=== PATIENT | female | born 1935 | race Caucasian/White ===

== ENCOUNTER 2018-08-10 00:17 | Day surgery (SDC) | payer OTHER ==
[~2018-08-10 00:17] MED LIST: DIOVAN PO
--- NOTE | 2018-08-10 15:24 | NUR ---
PRE AND POST VOID RESIDUAL SCAN: PT ARRIVED IN [place] WANTING WITH URGENCY TO URINATE. PT STATES SHE HAS DRANK APPROX. 50ML OF FLUID. SCANNED BLADDER WITH FBP BLADDER SCANNER 6 TIMES, AVERAGED SCANS TO 150ML. PT WENT INTO BATHROOM, URINATED 300CC OF CLEAR YELLOW URINE. POST SCAN OF 6 SCANS SHOWING ZERO. FOR UNKNOWN REASONS, BLADDER SCAN ONLY SHOWED THE 150ML AVERAGE OF 6 SCANS.
== END 2018-08-10 10:05 | disposition home or self-care (01) ==
LOC: ATC 00:17
DX: N39.41 Urge incontinence (principal); N32.81 Overactive bladder; Z88.8 Allergy status to other drugs, medicaments and biological substances
CPT/HCPCS: 51798

== ENCOUNTER 2021-02-18 17:11 | Emergency (ER) | payer OTHER | END 2021-02-19 00:12 | disposition home or self-care (01) | LOC: ER 17:11 | DX: N39.0 Urinary tract infection, site not specified (principal) ==

== ENCOUNTER 2021-02-28 10:22 | Observation (INO) | payer OTHER ==
[~2021-02-28] VITALS: Ht 170.2 cm; Wt 68.3 kg
[~2021-02-28 10:22] MED LIST changes: +CEFP200 PO
[2021-02-28 11:06] LABS: Source, Urine Clean Catch
[2021-02-28 11:12] LABS: BASOPHILS ABSOLUTE AUTO 0.01 K/mm3 (0.00-0.23); BASOPHILS PERCENT AUTO 0 % (0-2); EOSINOPHILS PERCENT AUTO 0 % (0-6); Hematocrit 40.1 % (33.0-51.0); Hemoglobin 13.9 g/dL (11.5-16.0); IMMATURE GRAN ABSOLUTE AUTO 0.02 K/mm3 (0.00-0.10); IMMATURE GRAN PERCENT AUTO 1 % (0-1); LYMPHOCYTES ABSOLUTE AUTO 0.93 K/mm3 (0.84-5.20); LYMPHOCYTES PERCENT AUTO 25 % (21-46); MONOCYTES ABSOLUTE AUTO 0.49 K/mm3 (0.16-1.47); MONOCYTES PERCENT AUTO 13 % (4-13); Mean Corpuscular HGB 31.4 pg (26.0-34.0); Mean Corpuscular HGB Conc 34.7 g/dL (31.5-36.5); Mean Corpuscular Volume 91 fL (80-100); Mean Platelet Volume 9.9 fL (9.1-12.4); NEUTROPHILS ABSOLUTE AUTO 2.25 K/mm3 (1.96-9.15); NEUTROPHILS PERCENT AUTO 61 % (41-73); Platelet Count 176 K/mm3 (150-400); RDW Coefficient Variation 12.4 % (11.7-14.2); RDW Standard Deviation 41.6 fL (35.1-46.3); Red Blood Cell Count 4.43 M/mm3 (3.80-5.20)
[2021-02-28 11:15] LABS: Appearance, Urine Clear (Clear); Bilirubin, Urine Neg (Neg); Blood, Urine 1+ (Neg); Color, Urine Yellow (P-Yellow); Glucose Qualitative, Urine Neg (Neg); Ketones, Urine Neg (Neg); Leukocyte Esterase, Urine Neg (Neg); Nitrite, Urine Neg (Neg); Protein, Urine 2+ (Neg); Urobilinogen, Urine 1+ (Normal)
[2021-02-28 11:26] LABS: Bacteria Few /hpf; Mucus Mod (0-Heavy); Red Blood Cells, Urine 0-2 /hpf (0-2); Squamous Epithelial Cells Mod /hpf (Few); White Blood Cells, Urine 0-2 /hpf (0-5)
[2021-02-28 11:37] LABS: Lactate Dehydrogenase (Ld),Bld 443 U/L (100-240)
[2021-02-28 11:38] LABS: Alanine Aminotransfer (ALT/SGP 37 U/L (12-78); Albumin, Blood 3.1 g/dL (3.4-5.0); Albumin/Globulin Ratio 0.9 (0.8-1.8); Alk Phos 61 U/L (50-136); Anion Gap 5 mmol/L (6-16); Aspartate Aminotrans (AST/SGOT 59 U/L (12-37); Bilirubin, Total 0.7 mg/dL (0.1-1.0); Blood Urea Nitrogen 12 mg/dL (8-24); Bun/Creatinine Ratio 15.8 (12.0-20.0); CO2, Blood 30 mmol/L (21-32); Calcium, Blood 8.2 mg/dL (8.5-10.1); Chloride, Blood 97 mmol/L (98-108); Creatinine, Blood 0.76 mg/dL (0.40-1.00); Globulin, Blood 3.5 g/dL (2.2-4.0); Glomerular Filtration Rate >60 (60-); Glucose, Blood 102 mg/dL (70-99); Sodium, Blood 132 mmol/L (136-145); Total Protein, Blood 6.6 g/dL (6.4-8.2)
[2021-02-28] MEDS ORDERED: DONEPEZIL HCL10 MG PO (15:13)
[2021-02-28] MEDS ORDERED: Diovan40 MG PO (15:14)
[2021-02-28] MEDS ORDERED: VITAMIN D31000 UNI1 PO (15:16)
[2021-03-01 04:52] LABS: BASOPHILS ABSOLUTE AUTO 0.01 K/mm3 (0.00-0.23); BASOPHILS PERCENT AUTO 0 % (0-2); EOSINOPHILS PERCENT AUTO 0 % (0-6); Hematocrit 38.7 % (33.0-51.0); Hemoglobin 13.3 g/dL (11.5-16.0); IMMATURE GRAN ABSOLUTE AUTO 0.03 K/mm3 (0.00-0.10); IMMATURE GRAN PERCENT AUTO 1 % (0-1); LYMPHOCYTES ABSOLUTE AUTO 0.91 K/mm3 (0.84-5.20); LYMPHOCYTES PERCENT AUTO 21 % (21-46); MONOCYTES ABSOLUTE AUTO 0.59 K/mm3 (0.16-1.47); MONOCYTES PERCENT AUTO 14 % (4-13); Mean Corpuscular HGB 31.1 pg (26.0-34.0); Mean Corpuscular HGB Conc 34.4 g/dL (31.5-36.5); Mean Corpuscular Volume 91 fL (80-100); Mean Platelet Volume 10.1 fL (9.1-12.4); NEUTROPHILS ABSOLUTE AUTO 2.79 K/mm3 (1.96-9.15); NEUTROPHILS PERCENT AUTO 65 % (41-73); Platelet Count 182 K/mm3 (150-400); RDW Coefficient Variation 12.4 % (11.7-14.2); RDW Standard Deviation 41.4 fL (35.1-46.3); Red Blood Cell Count 4.27 M/mm3 (3.80-5.20); White Blood Cell Count 4.33 K/mm3 (4.00-11.30)
[2021-03-01 05:11] LABS: Anion Gap 5 mmol/L (6-16); Blood Urea Nitrogen 16 mg/dL (8-24); CO2, Blood 29 mmol/L (21-32); Calcium, Blood 8.3 mg/dL (8.5-10.1); Chloride, Blood 98 mmol/L (98-108); Creatinine, Blood 0.76 mg/dL (0.40-1.00); Glomerular Filtration Rate >60 (60-); Glucose, Blood 92 mg/dL (70-99); Potassium, Blood 4.4 mmol/L (3.5-5.5); Sodium, Blood 132 mmol/L (136-145)
[2021-03-02] MEDS ORDERED: LEVFLO500 PO (06:35)
[2021-03-03 04:46] LABS: BASOPHILS ABSOLUTE AUTO 0.01 K/mm3 (0.00-0.23); BASOPHILS PERCENT AUTO 0 % (0-2); EOSINOPHILS PERCENT AUTO 0 % (0-6); Hematocrit 40.2 % (33.0-51.0); Hemoglobin 13.9 g/dL (11.5-16.0); IMMATURE GRAN ABSOLUTE AUTO 0.04 K/mm3 (0.00-0.10); IMMATURE GRAN PERCENT AUTO 1 % (0-1); LYMPHOCYTES ABSOLUTE AUTO 0.81 K/mm3 (0.84-5.20); LYMPHOCYTES PERCENT AUTO 14 % (21-46); MONOCYTES ABSOLUTE AUTO 0.46 K/mm3 (0.16-1.47); MONOCYTES PERCENT AUTO 8 % (4-13); Mean Corpuscular HGB 31.4 pg (26.0-34.0); Mean Corpuscular HGB Conc 34.6 g/dL (31.5-36.5); Mean Corpuscular Volume 91 fL (80-100); Mean Platelet Volume 9.9 fL (9.1-12.4); NEUTROPHILS ABSOLUTE AUTO 4.47 K/mm3 (1.96-9.15); NEUTROPHILS PERCENT AUTO 77 % (41-73); Platelet Count 219 K/mm3 (150-400); RDW Coefficient Variation 12.3 % (11.7-14.2); RDW Standard Deviation 41.2 fL (35.1-46.3); Red Blood Cell Count 4.43 M/mm3 (3.80-5.20); White Blood Cell Count 5.79 K/mm3 (4.00-11.30)
[2021-03-03 05:11] LABS: Alanine Aminotransfer (ALT/SGP 33 U/L (12-78); Albumin, Blood 3.1 g/dL (3.4-5.0); Albumin/Globulin Ratio 0.9 (0.8-1.8); Alk Phos 62 U/L (50-136); Anion Gap 5 mmol/L (6-16); Aspartate Aminotrans (AST/SGOT 40 U/L (12-37); Blood Urea Nitrogen 27 mg/dL (8-24); Bun/Creatinine Ratio 33.6 (12.0-20.0); CO2, Blood 30 mmol/L (21-32); Calcium, Blood 8.3 mg/dL (8.5-10.1); Chloride, Blood 99 mmol/L (98-108); Globulin, Blood 3.3 g/dL (2.2-4.0); Glomerular Filtration Rate >60 (60-); Glucose, Blood 87 mg/dL (70-99); Potassium, Blood 3.5 mmol/L (3.5-5.5); Sodium, Blood 134 mmol/L (136-145); Total Protein, Blood 6.4 g/dL (6.4-8.2)
[2021-03-05 10:07] LABS: Alanine Aminotransfer (ALT/SGP 31 U/L (12-78); Albumin, Blood 2.6 g/dL (3.4-5.0); Albumin/Globulin Ratio 0.7 (0.8-1.8); Alk Phos 62 U/L (50-136); Anion Gap 5 mmol/L (6-16); Aspartate Aminotrans (AST/SGOT 30 U/L (12-37); Bilirubin, Total 0.9 mg/dL (0.1-1.0); Blood Urea Nitrogen 25 mg/dL (8-24); Bun/Creatinine Ratio 39.1 (12.0-20.0); CO2, Blood 28 mmol/L (21-32); Calcium, Blood 8.4 mg/dL (8.5-10.1); Chloride, Blood 101 mmol/L (98-108); Creatinine, Blood 0.64 mg/dL (0.40-1.00); Globulin, Blood 3.5 g/dL (2.2-4.0); Glomerular Filtration Rate >60 (60-); Glucose, Blood 142 mg/dL (70-99); Potassium, Blood 3.8 mmol/L (3.5-5.5); Sodium, Blood 134 mmol/L (136-145); Total Protein, Blood 6.1 g/dL (6.4-8.2)
[2021-03-07 06:01] LABS: BASOPHILS ABSOLUTE AUTO 0.03 K/mm3 (0.00-0.23); BASOPHILS PERCENT AUTO 0 % (0-2); EOSINOPHILS ABSOLUTE AUTO 0.13 K/mm3 (0.00-0.68); EOSINOPHILS PERCENT AUTO 2 % (0-6); Hematocrit 38.1 % (33.0-51.0); Hemoglobin 12.7 g/dL (11.5-16.0); IMMATURE GRAN ABSOLUTE AUTO 0.11 K/mm3 (0.00-0.10); IMMATURE GRAN PERCENT AUTO 2 % (0-1); LYMPHOCYTES ABSOLUTE AUTO 1.03 K/mm3 (0.84-5.20); LYMPHOCYTES PERCENT AUTO 15 % (21-46); MONOCYTES ABSOLUTE AUTO 1.14 K/mm3 (0.16-1.47); MONOCYTES PERCENT AUTO 17 % (4-13); Mean Corpuscular HGB 31.4 pg (26.0-34.0); Mean Corpuscular HGB Conc 33.3 g/dL (31.5-36.5); Mean Corpuscular Volume 94 fL (80-100); Mean Platelet Volume 9.7 fL (9.1-12.4); NEUTROPHILS ABSOLUTE AUTO 4.29 K/mm3 (1.96-9.15); NEUTROPHILS PERCENT AUTO 64 % (41-73); Platelet Count 312 K/mm3 (150-400); RDW Coefficient Variation 12.5 % (11.7-14.2); RDW Standard Deviation 43.3 fL (35.1-46.3); Red Blood Cell Count 4.04 M/mm3 (3.80-5.20); White Blood Cell Count 6.73 K/mm3 (4.00-11.30)
[2021-03-07 06:35] LABS: Alanine Aminotransfer (ALT/SGP 26 U/L (12-78); Albumin, Blood 2.6 g/dL (3.4-5.0); Albumin/Globulin Ratio 0.7 (0.8-1.8); Alk Phos 62 U/L (50-136); Anion Gap 4 mmol/L (6-16); Aspartate Aminotrans (AST/SGOT 23 U/L (12-37); Bilirubin, Total 1.1 mg/dL (0.1-1.0); Blood Urea Nitrogen 33 mg/dL (8-24); Bun/Creatinine Ratio 47.3 (12.0-20.0); CO2, Blood 31 mmol/L (21-32); Calcium, Blood 8.5 mg/dL (8.5-10.1); Chloride, Blood 102 mmol/L (98-108); Globulin, Blood 3.6 g/dL (2.2-4.0); Glomerular Filtration Rate >60 (60-); Glucose, Blood 95 mg/dL (70-99); Potassium, Blood 4.3 mmol/L (3.5-5.5); Sodium, Blood 137 mmol/L (136-145); Total Protein, Blood 6.2 g/dL (6.4-8.2)
[2021-03-08 04:59] LABS: Albumin, Blood 2.4 g/dL (3.4-5.0); Anion Gap 2 mmol/L (6-16); Blood Urea Nitrogen 28 mg/dL (8-24); CO2, Blood 30 mmol/L (21-32); Calcium, Blood 8.4 mg/dL (8.5-10.1); Chloride, Blood 105 mmol/L (98-108); Creatinine, Blood 0.67 mg/dL (0.40-1.00); Glomerular Filtration Rate >60 (60-); Glucose, Blood 94 mg/dL (70-99); Phosphorus, Blood 3.3 mg/dL (2.5-4.9); Potassium, Blood 4.4 mmol/L (3.5-5.5); Sodium, Blood 137 mmol/L (136-145)
[2021-03-12] MEDS ORDERED: SENN187 PO (09:05)
[2021-03-12] MEDS ORDERED: DOCU100 PO (09:05)
== END 2021-03-12 11:54 | disposition home or self-care (01) ==
LOC: ER 10:22 → MEDS 10:23
PROVIDERS: Emergency Medicine; Internal Medicine; ADMIT Internal Medicine
DX: G93.40 Encephalopathy, unspecified (principal); U07.1 COVID-19; J12.82 Pneumonia due to coronavirus disease 2019; F03.90 Unspecified dementia, unspecified severity, without behavioral disturbance, psychotic disturbance, mood disturbance, and anxiety; I10 Essential (primary) hypertension; E86.0 Dehydration; R62.7 Adult failure to thrive; E78.5 Hyperlipidemia, unspecified; H91.90 Unspecified hearing loss, unspecified ear; R15.9 Full incontinence of feces; R32 Unspecified urinary incontinence; N39.0 Urinary tract infection, site not specified; B96.20 Unspecified Escherichia coli [E. coli] as the cause of diseases classified elsewhere; E87.1 Hypo-osmolality and hyponatremia; R53.1 Weakness; Z88.5 Allergy status to narcotic agent; Z88.8 Allergy status to other drugs, medicaments and biological substances; Z98.890 Other specified postprocedural states; Z86.69 Personal history of other diseases of the nervous system and sense organs
CPT/HCPCS: 36415; 71045; 80048; 80053; 80069; 81001; 83615; 84145; 85025; 86141; 93005; 93010; 94760; 96372; 99285-25; A9270; G0378; J1650; J7030

== ENCOUNTER 2021-12-21 11:16 | Emergency (ER) | payer OTHER ==
[~2021-12-21] VITALS: Ht 170.2 cm; Wt 74.8 kg
[~2021-12-21 11:16] MED LIST changes: +DOCU100 PO; +DONEPEZIL HCL10 MG PO; +Diovan40 MG PO; +LEVFLO500 PO; +SENN187 PO; +VITAMIN D31000 UNI1 PO
[2021-12-21 11:59] LABS: BASOPHILS ABSOLUTE AUTO 0.05 K/mm3 (0.00-0.23); BASOPHILS PERCENT AUTO 1 % (0-2); EOSINOPHILS PERCENT AUTO 3 % (0-6); Hematocrit 39.7 % (33.0-51.0); Hemoglobin 13.4 g/dL (11.5-16.0); IMMATURE GRAN ABSOLUTE AUTO 0.02 K/mm3 (0.00-0.10); IMMATURE GRAN PERCENT AUTO 0 % (0-1); LYMPHOCYTES ABSOLUTE AUTO 1.19 K/mm3 (0.84-5.20); LYMPHOCYTES PERCENT AUTO 20 % (21-46); MONOCYTES ABSOLUTE AUTO 0.64 K/mm3 (0.16-1.47); MONOCYTES PERCENT AUTO 11 % (4-13); Mean Corpuscular HGB 32.4 pg (26.0-34.0); Mean Corpuscular HGB Conc 33.8 g/dL (31.5-36.5); Mean Corpuscular Volume 96 fL (80-100); Mean Platelet Volume 10.1 fL (9.1-12.4); NEUTROPHILS ABSOLUTE AUTO 3.72 K/mm3 (1.96-9.15); NEUTROPHILS PERCENT AUTO 64 % (41-73); Platelet Count 213 K/mm3 (150-400); RDW Coefficient Variation 12.1 % (11.7-14.2); RDW Standard Deviation 42.6 fL (35.1-46.3); Red Blood Cell Count 4.13 M/mm3 (3.80-5.20); White Blood Cell Count 5.82 K/mm3 (4.00-11.30)
[2021-12-21 12:15] LABS: Albumin, Blood 3.6 g/dL (3.4-5.0); Albumin/Globulin Ratio 1.2 (0.8-1.8); Bilirubin, Total 0.8 mg/dL (0.1-1.0); Bun/Creatinine Ratio 19.9 (12.0-20.0); Calcium, Blood 8.8 mg/dL (8.5-10.1); Creatinine, Blood 0.75 mg/dL (0.40-1.00); Potassium, Blood 4.3 mmol/L (3.5-5.5); Total Protein, Blood 6.6 g/dL (6.4-8.2)
[2021-12-21 13:27] LABS: Source, Urine Clean Catch
[2021-12-21 13:30] LABS: Appearance, Urine Hazy (Clear); Bilirubin, Urine Neg (Neg); Blood, Urine 2+ (Neg); Color, Urine Yellow (P-Yellow); Glucose Qualitative, Urine Neg (Neg); Ketones, Urine Neg (Neg); Leukocyte Esterase, Urine 3+ (Neg); Nitrite, Urine Pos (Neg); Protein, Urine Neg (Neg); Urobilinogen, Urine NORM (Normal)
[2021-12-21 13:36] LABS: White Blood Cells, Urine TNTC /hpf (0-5)
[2021-12-21 13:37] LABS: Bacteria Many /hpf; Squamous Epithelial Cells Mod /hpf (Few)
[2021-12-21] MEDS ORDERED: CEPH500 PO (14:11)
== END 2021-12-21 14:20 | disposition home or self-care (01) ==
LOC: ER 11:16
PROVIDERS: Emergency Medicine
DX: S00.81XA Abrasion of other part of head, initial encounter (principal); F03.90 Unspecified dementia, unspecified severity, without behavioral disturbance, psychotic disturbance, mood disturbance, and anxiety; N39.0 Urinary tract infection, site not specified; I10 Essential (primary) hypertension; W01.0XXA Fall on same level from slipping, tripping and stumbling without subsequent striking against object, initial encounter; Y93.01 Activity, walking, marching and hiking; Y92.9 Unspecified place or not applicable; Z79.899 Other long term (current) drug therapy
CPT/HCPCS: 36415; 70450; 71045; 80053; 81001; 84484; 85025

== ENCOUNTER 2022-07-14 11:35 | Emergency (ER) | payer OTHER ==
[~2022-07-14] VITALS: Ht 170.2 cm; Wt 86.2 kg
[~2022-07-14 11:35] MED LIST changes: +CEPH500 PO
[2022-07-14 14:40] LABS: BASOPHILS ABSOLUTE AUTO 0.04 K/mm3 (0.00-0.23); BASOPHILS PERCENT AUTO 1 % (0-2); EOSINOPHILS ABSOLUTE AUTO 0.02 K/mm3 (0.00-0.68); EOSINOPHILS PERCENT AUTO 0 % (0-6); Hematocrit 43.7 % (33.0-51.0); Hemoglobin 15.1 g/dL (11.5-16.0); IMMATURE GRAN ABSOLUTE AUTO 0.03 K/mm3 (0.00-0.10); IMMATURE GRAN PERCENT AUTO 0 % (0-1); LYMPHOCYTES ABSOLUTE AUTO 1.23 K/mm3 (0.84-5.20); LYMPHOCYTES PERCENT AUTO 16 % (21-46); MONOCYTES ABSOLUTE AUTO 0.84 K/mm3 (0.16-1.47); MONOCYTES PERCENT AUTO 11 % (4-13); Mean Corpuscular HGB 31.4 pg (26.0-34.0); Mean Corpuscular HGB Conc 34.6 g/dL (31.5-36.5); Mean Corpuscular Volume 91 fL (80-100); Mean Platelet Volume 10.3 fL (9.1-12.4); NEUTROPHILS ABSOLUTE AUTO 5.39 K/mm3 (1.96-9.15); NEUTROPHILS PERCENT AUTO 71 % (41-73); Platelet Count 154 K/mm3 (150-400); RDW Coefficient Variation 13.1 % (11.7-14.2); RDW Standard Deviation 43.6 fL (35.1-46.3); Red Blood Cell Count 4.81 M/mm3 (3.80-5.20); White Blood Cell Count 7.55 K/mm3 (4.00-11.30)
[2022-07-14 15:07] LABS: Albumin, Blood 3.6 g/dL (3.4-5.0); Albumin/Globulin Ratio 1.1 (0.8-1.8); Bilirubin, Total 0.9 mg/dL (0.1-1.0); Bun/Creatinine Ratio 24.6 (12.0-20.0); Calcium, Blood 8.8 mg/dL (8.5-10.1); Creatinine, Blood 0.77 mg/dL (0.40-1.00); Globulin, Blood 3.3 g/dL (2.2-4.0); Total Protein, Blood 6.9 g/dL (6.4-8.2)
[2022-07-14 15:16] LABS: Source, Urine Straight Cath
[2022-07-14 15:20] LABS: Bilirubin, Urine Neg (Neg); Blood, Urine 3+ (Neg); Color, Urine Yellow (P-Yellow); Glucose Qualitative, Urine Neg (Neg); Ketones, Urine 3+ (Neg); Leukocyte Esterase, Urine 1+ (Neg); Nitrite, Urine Pos (Neg); Protein, Urine 2+ (Neg); Specific Gravity, Urine 1.025 (1.003-1.022); Urobilinogen, Urine 1+ (Normal)
[2022-07-14 15:52] LABS: Appearance, Urine Hazy (Clear)
[2022-07-14 15:54] LABS: Bacteria Many /hpf; Mucus Light (0-Heavy); Squamous Epithelial Cells Many /hpf (Few); Transitional Epithelial Cells Rare /hpf (0-Rare)
[2022-07-14 15:55] LABS: Red Blood Cells, Urine 0-2 /hpf (0-2)
[2022-07-14] MEDS ORDERED: CEFD300 PO (16:48)
[2022-07-14] MEDS ORDERED: FAMC500 PO (16:48)
== END 2022-07-14 18:10 | disposition home or self-care (01) ==
LOC: ER 11:35
PROVIDERS: Emergency Medicine
DX: N39.0 Urinary tract infection, site not specified (principal); I10 Essential (primary) hypertension; F03.90 Unspecified dementia, unspecified severity, without behavioral disturbance, psychotic disturbance, mood disturbance, and anxiety; Z88.6 Allergy status to analgesic agent; Z88.8 Allergy status to other drugs, medicaments and biological substances; Z88.5 Allergy status to narcotic agent; Z79.899 Other long term (current) drug therapy
CPT/HCPCS: 36415; 71045; 80053; 81001; 83690; 85025; A9270; J0696; J7030; P9612

== ENCOUNTER 2023-09-13 16:47 | Inpatient (IN) | payer OTHER ==
[~2023-09-13] VITALS: Ht 170.2 cm; Wt 94.3 kg
[~2023-09-13 16:47] MED LIST changes: +CEFD300 PO; +FAMC500 PO
[2023-09-13] MEDS ORDERED: NS 1,000 ML IV SCH ×2 (17:00→18:55)
[2023-09-13] MEDS ORDERED: Acetaminophen 650 MG Supp PR ONE (17:00)
[2023-09-13 17:17] LABS: BASOPHILS ABSOLUTE AUTO 0.06 K/mm3 (0.00-0.23); BASOPHILS PERCENT AUTO 0 % (0-2); EOSINOPHILS ABSOLUTE AUTO 0.05 K/mm3 (0.00-0.68); EOSINOPHILS PERCENT AUTO 0 % (0-6); IMMATURE GRAN ABSOLUTE AUTO 0.07 K/mm3 (0.00-0.10); IMMATURE GRAN PERCENT AUTO 0 % (0-1); LYMPHOCYTES ABSOLUTE AUTO 1.48 K/mm3 (0.84-5.20); LYMPHOCYTES PERCENT AUTO 9 % (21-46); MONOCYTES ABSOLUTE AUTO 0.88 K/mm3 (0.16-1.47); MONOCYTES PERCENT AUTO 5 % (4-13); Mean Corpuscular HGB 31.6 pg (26.0-34.0); Mean Corpuscular HGB Conc 33.3 g/dL (31.5-36.5); Mean Corpuscular Volume 95 fL (80-100); Mean Platelet Volume 10.1 fL (9.1-12.4); NEUTROPHILS ABSOLUTE AUTO 14.89 K/mm3 (1.96-9.15); NEUTROPHILS PERCENT AUTO 86 % (41-73); Platelet Count 228 K/mm3 (150-400); RDW Coefficient Variation 13.2 % (11.7-14.2); RDW Standard Deviation 46.5 fL (35.1-46.3); Red Blood Cell Count 5.06 M/mm3 (3.80-5.20); White Blood Cell Count 17.43 K/mm3 (4.00-11.30)
[2023-09-13 17:33] LABS: Source, Urine Straight Cath
[2023-09-13 17:43] LABS: Albumin, Blood 3.7 g/dL (3.4-5.0); Bilirubin, Total 0.8 mg/dL (0.1-1.0); Bun/Creatinine Ratio 22.2 (12.0-20.0); Calcium, Blood 9.3 mg/dL (8.5-10.1); Creatinine, Blood 0.68 mg/dL (0.40-1.00); Globulin, Blood 3.7 g/dL (2.2-4.0); Potassium, Blood 4.8 mmol/L (3.5-5.5); Total Protein, Blood 7.4 g/dL (6.4-8.2)
[2023-09-13 17:47] LABS: Appearance, Urine Hazy (Clear); Bilirubin, Urine Neg (Neg); Blood, Urine 3+ (Neg); Glucose Qualitative, Urine Neg (Neg); Ketones, Urine Neg (Neg); Leukocyte Esterase, Urine 2+ (Neg); Nitrite, Urine Pos (Neg); Protein, Urine 1+ (Neg); Urobilinogen, Urine NORM (Normal)
[2023-09-13 18:14] LABS: Color, Urine Pale Yellow (P-Yellow)
[2023-09-13 18:17] LABS: Bacteria Many /hpf; Squamous Epithelial Cells Mod /hpf (Few); White Blood Cells, Urine 25-50 /hpf (0-5)
[2023-09-13 18:19] LABS: Influenza A, PCR NEGATIVE (NEGATIVE); Influenza B, PCR NEGATIVE (NEGATIVE); Resp Syncytial Virus, PCR NEGATIVE (NEGATIVE); SARS-Cov-2 (COVID-19) PCR, MMC NEGATIVE (NEGATIVE)
[2023-09-13] MEDS ORDERED: CefTRIAXone Sodium 1,000 MG in NS 50 ML IV ONE (18:55)
[2023-09-13] MEDS ORDERED: FLU VACC QS2023-24(6MOS UP)/PF 60 MCG/0.5 ML SYRINGE IM ONE (20:00)
[2023-09-13] MEDS ORDERED: Lactobacil 2-S.Thermo-Bifido 1 1 Cap PO SCH (21:00)
[2023-09-13 22:00] VITALS: BP 131/68
[2023-09-13] MEDS ORDERED: Acetaminophen 325 MG TABLET PO ONE (22:05)
[2023-09-13] MEDS ORDERED: ASCO500 PO (22:06)
[2023-09-13] MEDS ORDERED: [UNRECOGNIZED DRUG - OTHER] PO (22:06)
[2023-09-13] MEDS ORDERED: VISBIOME 112.51 EACH PO (22:07)
[2023-09-13 22:30] VITALS: BP 138/57
[2023-09-13] MEDS ORDERED: Acetaminophen 325 MG TABLET PO PRN (23:00)
[2023-09-13] MEDS ORDERED: Nitroglycerin 0.4 MG SUBL SL PRN (23:35)
[2023-09-13] MEDS ORDERED: Lactated Ringer's 1,000 ML IV SCH (23:36)
[2023-09-13] MEDS ORDERED: Clopidogrel Bisulfate 300 MG Cap PO ONE (23:40)
[2023-09-13 23:45] VITALS: BP 132/73
[2023-09-14] VITALS (11 sets, daily range): BP systolic 103–147; BP diastolic 46–90
[2023-09-14] MEDS ORDERED: Heparin Sodium 5000 Units/ML 1ML MDV IV ONE (00:20)
[2023-09-14] MEDS ORDERED: Heparin Sodium,Porcine/0.5 NS 500 ML IV SCH (00:20)
[2023-09-14 04:50] LABS: BASOPHILS ABSOLUTE AUTO 0.08 K/mm3 (0.00-0.23); BASOPHILS PERCENT AUTO 0 % (0-2); EOSINOPHILS ABSOLUTE AUTO 0.01 K/mm3 (0.00-0.68); EOSINOPHILS PERCENT AUTO 0 % (0-6); Hematocrit 39.5 % (33.0-51.0); Hemoglobin 13.1 g/dL (11.5-16.0); IMMATURE GRAN ABSOLUTE AUTO 0.18 K/mm3 (0.00-0.10); IMMATURE GRAN PERCENT AUTO 1 % (0-1); LYMPHOCYTES ABSOLUTE AUTO 2.61 K/mm3 (0.84-5.20); LYMPHOCYTES PERCENT AUTO 11 % (21-46); MONOCYTES ABSOLUTE AUTO 1.76 K/mm3 (0.16-1.47); MONOCYTES PERCENT AUTO 7 % (4-13); Mean Corpuscular HGB 31.6 pg (26.0-34.0); Mean Corpuscular HGB Conc 33.2 g/dL (31.5-36.5); Mean Corpuscular Volume 95 fL (80-100); Mean Platelet Volume 10.2 fL (9.1-12.4); NEUTROPHILS ABSOLUTE AUTO 19.47 K/mm3 (1.96-9.15); NEUTROPHILS PERCENT AUTO 81 % (41-73); Platelet Count 188 K/mm3 (150-400); RDW Coefficient Variation 13.5 % (11.7-14.2); RDW Standard Deviation 47.5 fL (35.1-46.3); Red Blood Cell Count 4.15 M/mm3 (3.80-5.20); White Blood Cell Count 24.11 K/mm3 (4.00-11.30)
[2023-09-14 05:40] LABS: Albumin, Blood 3.1 g/dL (3.4-5.0); Bilirubin, Total 1.2 mg/dL (0.1-1.0); Bun/Creatinine Ratio 23.7 (12.0-20.0); Calcium, Blood 8.6 mg/dL (8.5-10.1); Creatinine, Blood 0.63 mg/dL (0.40-1.00); Potassium, Blood 4.5 mmol/L (3.5-5.5); Total Protein, Blood 6.1 g/dL (6.4-8.2)
--- NOTE | 2023-09-14 06:36 | NUR ---
Admit/ End of shift note. Pt admitted from the ED to PCU9 at approximately 2300. Pt mostly unresponsive, is only sometimes able to answer questions and follow directions. Daughter was at bedside and oriented to room and hospital policies. Troponins continue to trend up. Heparin gtt started. Denies CP or discomfort. Staff has struggled to achieve additional IV access. Multiple nurses have attempted with ultrasound. MD was notified of inability to infuse LR at 75mL x1 bag. MD gave order to trend vital signs until dayshift when additional access can be achieved and fluids can be restarted. The one small IV Pt currently has is infusing heparin. Incontient of urine, purwick is in place to suction. Low urine output since arriving to the unit. Bladder scanned at 0530 for 66mL. Pt has been oriented to call light but Pt has not used it. Frequent staff rounding.
[2023-09-14] MEDS ORDERED: Enoxaparin 40 MG/0.4 ML SYR SC SCH (09:00)
[2023-09-14] MEDS ORDERED: Clopidogrel Bisulfate 75 MG Tab PO SCH (09:00)
[2023-09-14] MEDS ORDERED: Metoprolol Tartrate 25 MG Tab PO SCH (09:00)
[2023-09-14 09:38] LABS: Anti-Xa UFH, PHA Monitoring 0.93 IU/mL; International Normalized Ratio 1.06; Prothrombin Time Results 11.1 Sec (9.7-11.5)
[2023-09-14] MEDS ORDERED: Dose Adjust by Pharmacy XX STA (09:44)
--- NOTE | 2023-09-14 18:01 | NUR ---
END OF SHIFT PT ALERT TO SELF, FAMILY & PLACE. PT [place] & FORGETFUL. PT DAUGHTER AT BEDSIDE REPORTING PT SLEEPS ALOT AT BASELINE BUT STATES PT IS ABLE TO AMBULATE W/ WALKER W/ ASSISTANCE GETTING UP. PT SLEEPING MAJORITY OF DAY. VSS. SPO2 > 92% ON RA. MONITOR SHOWING SR-ST, HR 90s-110s. TROPONINS TRENDING UP. HEPARIN GTT INFUSING PER ORDERS UNTIL DCd BY LICENSED OCCUPATIONAL THERAPY ASSISTANT. PT SEEN BY ST, CLEARED FOR DIET. PT REPORTING WANTING MEAL, BUT THEN WHEN ATTEMPTING TO FEED PT, PT STATING "I DON'T WANT ANYTHING." PT THEN RETURNING TO SLEEP. LR GTT [id number] INFUSING PER EMAR. PT INCONTINENT W/ PUREWIC & ATTENDS IN PLACE. PT W/ LOW PO INTAKE & LOW URINE OUTPUT.
[2023-09-14] MEDS ORDERED: CefTRIAXone Sodium 1,000 MG in NS 50 ML IV SCH (19:00)
[2023-09-14] MEDS ORDERED: Metoprolol Succinate 25 MG TABCR PO SCH (21:00)
[2023-09-15] MEDS ORDERED: NS 1,000 ML IV SCH (02:25)
--- NOTE | 2023-09-15 02:53 | NUR ---
PATIENT UPDATE CALL PLACED TO MD JIMENEZ REGARDING POOR URINARY OUTPUT OF DARK JENNY COLOR; AT APPROXIMATELY 0200 PT ONLY WITH 100MLS OF OUTPUT. POOR INTAKE. MD WITH ORDER FOR NS AT 100MLS/HR FOR HYDRATION. ORDER FOR BNP ADDED TO MORNING LABS. NS INFUSING PER EMAR. BED IN LOWEST POSITION AND CALL LIGHT WITHIN REACH.
[2023-09-15 03:30] VITALS: BP 125/92
[2023-09-15 03:54] LABS: BASOPHILS ABSOLUTE AUTO 0.04 K/mm3 (0.00-0.23); BASOPHILS PERCENT AUTO 0 % (0-2); EOSINOPHILS ABSOLUTE AUTO 0.09 K/mm3 (0.00-0.68); EOSINOPHILS PERCENT AUTO 1 % (0-6); Hemoglobin 12.4 g/dL (11.5-16.0); IMMATURE GRAN ABSOLUTE AUTO 0.05 K/mm3 (0.00-0.10); IMMATURE GRAN PERCENT AUTO 0 % (0-1); LYMPHOCYTES ABSOLUTE AUTO 2.36 K/mm3 (0.84-5.20); LYMPHOCYTES PERCENT AUTO 16 % (21-46); MONOCYTES ABSOLUTE AUTO 1.31 K/mm3 (0.16-1.47); MONOCYTES PERCENT AUTO 9 % (4-13); Mean Corpuscular HGB 31.5 pg (26.0-34.0); Mean Corpuscular HGB Conc 33.5 g/dL (31.5-36.5); Mean Corpuscular Volume 94 fL (80-100); Mean Platelet Volume 10.1 fL (9.1-12.4); NEUTROPHILS ABSOLUTE AUTO 10.86 K/mm3 (1.96-9.15); NEUTROPHILS PERCENT AUTO 74 % (41-73); Platelet Count 185 K/mm3 (150-400); RDW Coefficient Variation 13.5 % (11.7-14.2); RDW Standard Deviation 46.5 fL (35.1-46.3); Red Blood Cell Count 3.94 M/mm3 (3.80-5.20); White Blood Cell Count 14.71 K/mm3 (4.00-11.30)
--- NOTE | 2023-09-15 04:26 | NUR ---
SHIFT SUMMARY SEE PREVIOUS NOTE. PT REPORTED CHEST PAIN AND SOB BRIEFLY AROUND 0340. EKG DONE PER PROTOCOL. EKG DIFFICULT TO OBTAIN D/T DEMENTIA AND INABILITY TO FOLLOW DIRECTIONS AND POOR SHORT TERM MEMORY. PT DENIED CHEST PAIN AND SOB BY THE TIME EKG WAS COMPLETED. THIS RN CALLED MD JIMENEZ REGARDING EVENT AND EKG SHOWING POSSIBLE NEW T WAVE INVERSION COMPARED TO PREVIOUS EKG. MD JIMENEZ INFORMED THAT PT WAS SLEEPING AGAIN; NO NEW ORDERS AT THIS TIME. MD WITH VERBAL TO CONTACT HER IF CHEST PAIN OCCURS AGAIN. OTHERWISE PT WAS LETHARGIC AND ORIENTED TO SELF, AND AT OCCASIONALLY PLACE. REFUSED SOME MEDS. PT FEARFUL WITH ADL'S. STIFF/RESISTANT WITH CARE AND REPOSITIONING. SR WITH HR 80-90'S. BP STABLE. ON RA WITH SPO2 >92%. NS INFUSING PER EMAR; SEE PREVIOUS NOTE REGARDING URINARY OUTPUT. PUREWICK IN PLACE. REPOSITIONING Q2HRS D/T BEDREST STATUS. BLANCHABLE REDNESS NOTED ON COCCYX. PRESSURE INJURY ON RIGHT HEEL DRESSED WITH MEPILEX; PRESENT ON ADMISSION; SEE PHOTO IN CHART. BED IN LOWEST POSITION AND CALL LIGHT WITHIN REACH. THIS RN WILL REPORT TO ONCOMING DAYSHIFT RN.
[2023-09-15 04:31] LABS: Albumin, Blood 3.1 g/dL (3.4-5.0); Bilirubin, Total 1.3 mg/dL (0.1-1.0); Bun/Creatinine Ratio 21.2 (12.0-20.0); Calcium, Blood 8.6 mg/dL (8.5-10.1); Creatinine, Blood 0.71 mg/dL (0.40-1.00); Globulin, Blood 3.1 g/dL (2.2-4.0); Total Protein, Blood 6.2 g/dL (6.4-8.2)
[2023-09-15] MEDS ORDERED: Pantoprazole Sodium 40 MG Tab PO SCH (06:00)
[2023-09-15 07:24] VITALS: BP 118/85
[2023-09-15] MEDS ORDERED: Enoxaparin 40 MG/0.4 ML SYR SC SCH (09:00)
[2023-09-15] MEDS ORDERED: Metoprolol Succinate 50 MG TABCR PO SCH (09:00)
[2023-09-15] MEDS ORDERED: Aspirin 81 MG Chew PO SCH (10:00)
[2023-09-15 11:02] VITALS: BP 139/68
[2023-09-15 16:27] VITALS: BP 140/71
--- NOTE | 2023-09-15 17:42 | NUR ---
END OF SHIFT PT A&O TO SELF, PLACE & FAMILY THAT CAME TO VISIT. PT [place] & FORGETFUL. PT DOES NOT ANSWER ALL QUESTIONS & DOES NOT ALWAYS FOLLOW SIMPLE INSTRUCTIONS WHETHER D/T LACK OF HEARING, LACK OF UNDERSTANDING, OR LACK OF INTEREST. PT VSS. SPO2 > 92% ON RA. MONITOR SHOWING SR, HR 70s-90s. PT INCONTINENT W/ PUREWIC & ATTENDS IN PLACE. NS GTT DCd. PT TOLERATING PO INTAKE.
[2023-09-15 19:44] VITALS: BP 145/79
[2023-09-15 23:35] VITALS: BP 116/96
[2023-09-16 03:23] VITALS: BP 116/60
[2023-09-16 04:09] LABS: BASOPHILS ABSOLUTE AUTO 0.04 K/mm3 (0.00-0.23); BASOPHILS PERCENT AUTO 0 % (0-2); EOSINOPHILS ABSOLUTE AUTO 0.12 K/mm3 (0.00-0.68); EOSINOPHILS PERCENT AUTO 1 % (0-6); Hematocrit 36.1 % (33.0-51.0); Hemoglobin 12.2 g/dL (11.5-16.0); IMMATURE GRAN ABSOLUTE AUTO 0.07 K/mm3 (0.00-0.10); IMMATURE GRAN PERCENT AUTO 1 % (0-1); LYMPHOCYTES ABSOLUTE AUTO 1.88 K/mm3 (0.84-5.20); LYMPHOCYTES PERCENT AUTO 14 % (21-46); MONOCYTES PERCENT AUTO 11 % (4-13); Mean Corpuscular HGB 31.4 pg (26.0-34.0); Mean Corpuscular HGB Conc 33.8 g/dL (31.5-36.5); Mean Corpuscular Volume 93 fL (80-100); Mean Platelet Volume 10.8 fL (9.1-12.4); NEUTROPHILS ABSOLUTE AUTO 9.86 K/mm3 (1.96-9.15); NEUTROPHILS PERCENT AUTO 74 % (41-73); Platelet Count 181 K/mm3 (150-400); RDW Coefficient Variation 13.5 % (11.7-14.2); RDW Standard Deviation 45.8 fL (35.1-46.3); Red Blood Cell Count 3.88 M/mm3 (3.80-5.20); White Blood Cell Count 13.37 K/mm3 (4.00-11.30)
[2023-09-16 04:28] LABS: Bun/Creatinine Ratio 22.2 (12.0-20.0); Calcium, Blood 8.5 mg/dL (8.5-10.1); Creatinine, Blood 0.81 mg/dL (0.40-1.00); Potassium, Blood 3.8 mmol/L (3.5-5.5)
--- NOTE | 2023-09-16 05:02 | NUR ---
SHIFT SUMMARY PT A&O TO SELF, PLACE, AND MONTH/DAY. PT REFUSING SOME CARE. HX DEMENTIA NOTED. VSS. REPOSITIONING Q2HRS. MEPILEX ON HEELS AND COCCYX. PUREWICK IN PLACE. IMPROVED URINARY OUTPUT NOTED ON THIS NOC SHIFT THAN PREVIOUS NOC SHIFT WITH THIS RN. ENCOURAGING PO INTAKE. PT APPEARED TO HAVE SLEPT THE MAJORITY OF THIS SHIFT. BED IN LOWEST POSITION AND CALL LIGHT WITHIN REACH THIS RN WILL REPORT TO ONCOMING DAYSHIFT RN.
[2023-09-16 07:41] VITALS: BP 123/66
[2023-09-16 11:15] VITALS: BP 114/66
[2023-09-16 15:34] VITALS: BP 128/60
--- NOTE | 2023-09-16 17:09 | NUR ---
TRANSFER TO MEDICAL PT MEDICAL NO TELEMETRY STATUS. A&O TO SELF, FAMILY & PLACE. PT [place]. PT DOES NOT ALWAYS COOPERATE W/ CARE, UNCLEAR IF THIS IS D/T LACK OF HEARING, LACK OF UNDERSTANDING OR LACK OF INTEREST FROM PT. PT VSS. SPO2 > 92% ON RA. PT INCONTINENT W/ ATTENDS IN PLACE. REPORT GIVEN TO ACCEPTING MEDICAL FLOOR RN ASSUMING CARE OF PT. PT TAKEN TO RM [id number] BY BED W/ BELONGINGS @ APPROX 1700.
--- NOTE | 2023-09-16 17:40 | NUR ---
TRANSFER AND SHIFT SUMMARY PATIENT TRANSFERED FROM PCU AT 1700. PATIENT AWAKE [place] AND INCONSISTENT WITH INTERACTION. PATIENT RIGID WITH TURNING. SKIN ASSESSMENT DONE ON TRANSFER. NO OBVIOUS WOUNDS. MEPILEX DRESSINGS IN PLACE FOR PROTECTION ON HEELS AND COCCYX. PATIENT HAS HX OF DEMENTIA. PATIENT CURRENTLY ON BEDREST. PATIENT WORKED WITH PT/OT AND WAS ONLY ABLE TO DANGLE AT BEDSIDE.
[2023-09-16 19:23] VITALS: BP 154/71
[2023-09-16] MEDS ORDERED: NS 250 ML IV PRN (20:30)
[2023-09-17 02:37] VITALS: BP 157/72
--- NOTE | 2023-09-17 04:44 | NUR ---
SHIFT SUMMARY PT VERY DIFFICULT TO WAKE. DOES NOT RESPOND TO MOST INQUIRIES. COUGHING OCCASIONALLY IN SLEEP. WILL SOMETIMES RESPOND, BUT MOSTLY SEEMS UNAWARE WHEN BEING SPOKEN TO. PT WAS OTHERWISE COOPERATIVE WITH CARE. SLEPT MOST OF NIGHT.
[2023-09-17 04:57] LABS: BASOPHILS ABSOLUTE AUTO 0.05 K/mm3 (0.00-0.23); BASOPHILS PERCENT AUTO 0 % (0-2); EOSINOPHILS ABSOLUTE AUTO 0.13 K/mm3 (0.00-0.68); EOSINOPHILS PERCENT AUTO 1 % (0-6); Hematocrit 38.7 % (33.0-51.0); IMMATURE GRAN ABSOLUTE AUTO 0.09 K/mm3 (0.00-0.10); IMMATURE GRAN PERCENT AUTO 1 % (0-1); LYMPHOCYTES PERCENT AUTO 18 % (21-46); MONOCYTES ABSOLUTE AUTO 1.55 K/mm3 (0.16-1.47); MONOCYTES PERCENT AUTO 13 % (4-13); Mean Corpuscular HGB 31.3 pg (26.0-34.0); Mean Corpuscular HGB Conc 33.6 g/dL (31.5-36.5); Mean Corpuscular Volume 93 fL (80-100); NEUTROPHILS ABSOLUTE AUTO 7.79 K/mm3 (1.96-9.15); NEUTROPHILS PERCENT AUTO 67 % (41-73); Platelet Count 203 K/mm3 (150-400); RDW Coefficient Variation 13.5 % (11.7-14.2); RDW Standard Deviation 46.1 fL (35.1-46.3); Red Blood Cell Count 4.15 M/mm3 (3.80-5.20); White Blood Cell Count 11.71 K/mm3 (4.00-11.30)
[2023-09-17 07:09] VITALS: BP 135/62
--- NOTE | 2023-09-17 11:50 | NUR ---
PALLATIVE CARE- WENT TO EVALUATE PATIENT, SHE WAS SLEEPING AND APPEARED TO BE COMFORTABLE AT THIS TIME. I SPOKE TO BERT (DAUGHTER) ON THE PHONE. WE DISCUSSED THE TRAJECTORY OF DEMENTIA. OVI IS FAMILLIAR WITH THE PROGRESSION. WE DISCUSSED THE OPTION OF HOSPICE AND SHE IS OPEN TO IT WHEN THE PAITIENT IS READY FOR IT, WE SPOKE ABOUT THE ADDED SUPPORT THAT WILL BE AVALIABLE WITH THAT OPTION. CURRENTLY THE PATIENT IS IN INDEPENDENT LIVING WITH CAREGIVER SUPPORT. DAUGHTER IS VERY INVOLVED WITH [facility]. SHE REPORTS THAT AT BASELINE THE PATIENT REQUIRES FIRM DIRECTION AND THEY ARE VERY ENCOURAGING OF HER TO BE MOBILE POSSIBLE AND CONTINUE TO GET UP TO GO TO THE RESTROOM AND BATHE. HER GOAL IS TO KEEP EDMOND AT HOME LONG SHE CAN. BERT REPORTS THAT EDMOND DOES GET CONFUSED WHEN SHE HAS A UTI AND THIS IS NOT HER BASELINE. I DISCUSSED THIS CONVERSATION WITH THE PROVIDER.
[2023-09-17 15:14] VITALS: BP 132/63
[2023-09-17] MEDS ORDERED: Miconazole Nitrate 2% 85 GM PWD TOP SCH ×2 (16:20→21:00)
--- NOTE | 2023-09-17 18:10 | NUR ---
SHIFT SUMMARY: UNABLE TO ASSESS COGNITIVE ABILITY PT WILL NOT ANSWER MANY QUESTIONS FROM STAFF. PT WORKED WITH PHYSICAL THERAPY THIS AM. PT DID NOT HAVE STRENGTH TO SIT ON SIDE OF BED OR HOLD SELF UP. IV IN R. WRIST REMOVED D/T INFILTRATION. PG IN NIRAJ FLUSHES W/O COMPLICATION. PT ABLE TO FEED SELF THIS SHIFT. DAUGHTER IN ROOM THIS AFTERNOON. NEW MEPILEX PLACED TO BILAT HEALS AND COCCYX. PT FLOATED ON PILLOWS COCCYX/BACK SIDE IS VERY RED. MICONAZOLE POWDER ORDERED BID FOR YEAST/REDNESS IN CHEN FOLDS, UNDER L. BREAST, AND ARMPITS. BED BATH PROVIDED. PT REMAINS VERY SOMNOLENT. CALL LIGHT IN REACH. BED IN LOWEST POSITION. WILL REPORT TO ONCOMING RN.
[2023-09-17 19:21] VITALS: BP 141/59
[2023-09-18 02:57] VITALS: BP 138/58
--- NOTE | 2023-09-18 04:47 | NUR ---
SHIFT SUMMARY 88 YR F ADMITTED ON 09/14/23. DNR. NO ACUTE CHANGES THIS SHIFT. PT HAS SLEPT FOR MOST OF THIS SHIFT AND DOES NOT WANT TO WAKE UP FOR CARE OR MEDS. MOST OF THE TIME SHE WONT EVEN OPEN HER EYES. SHE DOES NOT/CANNOT PARTICIPATE OR COOPERATE WITH CARE OR FOLLOW SIMPLE INSTRUCTIONS. BED IN LOW POSITION AND CALL LIGHT IN REACH.
[2023-09-18 07:47] VITALS: BP 132/63
--- NOTE | 2023-09-18 09:00 | NUR ---
PT PLEASANT BUT CONFUSED. ANS MINIMALLY, STATED NAME. SAID HELLO. DENIES PAIN, H/R REG, NO MURMUR NOTED. NO PACER NOTED. NO TELE. LUNGS CLEAR, RESP EASY, UNLABORED. ON R.A. BT X4 LAST BM NOT KNOWN BY PT. VOIDS INCONT. BREIF DRY AT THIS TIME. BED BOUND AT THIS TIME. TURN Q2. DAUGHTER TO ROOM, STATES SHE WAS WALKING WITH [facility] WITH [facility] DAY PRIOR TO COMING HERE. ALSO STATES SHE IS LIVING IN [facility] WITH SELF FUNDING CARE PROVIDERS. ROUND CLOCK CARE. STATES SHE, DAUGHTER, COMES TO HELP IN AM AND PM TO GET UP AND CLEANED. THEN LEAVES. STATES IS OKAY TO TAKE HOME AGAIN, WITH CARE. REPORTED TO DR STERN AND CARE MGMT. BED IN LOW POSITION, CALL LITE IN REACH, BED ALARM ON FOR SAFETY
--- NOTE | 2023-09-18 14:07 | NUR ---
PT RESTING IN BED, EYES CLOSED, RESP EASY, UNLABORED. RELAXED. BED IN LOW POSITION, CALL LITE IN REACH, BED ALARM ON FOR SAFETY
[2023-09-18 14:27] VITALS: BP 144/58
--- NOTE | 2023-09-18 18:26 | NUR ---
PT PLEASANT TODAY. DAUGHTER IN TODAY. DISCUSSED HER GOING HOME SOON AND IF CAN CARE FOR HER. SHE STATES CAN, DOES HAVE CARE ALL EXCEPT FOR ACTUAL SLEEP TIME. DISCUSSED IF NEEDS SOME MORE CARE, DAUGHTER STATES COULD ARRANGE. NOTIFIED OF SITUATION. NO FURTHER CONCERNS NOTED TODAY. BED IN LOW POSITION, CALL LITE IN REACH, CALLS APROP
[2023-09-18 19:55] VITALS: BP 141/58
[2023-09-19 04:20] VITALS: BP 141/58
--- NOTE | 2023-09-19 05:03 | NUR ---
SHIFT SUMMARY PT ALERT TO SELF ONLY, MOSTLY SLEEPING. RESPONDS TO VERBAL STIMULI BUT VERY SHORT SLOW RESPONSES. PUREWICK IN PLACE DRAINING DARK URINE. Q2 TURNS PT NOT ABLE/AWAKE ENOUGH TO REPOSITION SELF. PT NOT OOB THIS SHIFT. DAUGHTER DID BRIN IN PT HOME WALKER AND STATES PT AMBULATES WITH WALKER AT BASELINE. BED KEPT IN LOWEST POSIITON WITH CALL LIGHT WITHIN REACH.
[2023-09-19 07:15] VITALS: BP 146/58
[2023-09-19] MEDS ORDERED: Dextrose 50% 50 ML Syringe IV ONE ×2 (07:20→16:45)
--- NOTE | 2023-09-19 07:28 | NUR ---
[facility]CO[facility] REPORTS CBG SHOWS 35. PT STILL ABLE TO ANS 1 WORD AT TIME. AWAKE. GAVE TEASPOON HONEY. CALLED DR FOR ORDER FOR D50. CHARGE ORDERED. / AMP D50 ADMIN. PT STILL TALKING.TOOK HONEY READILY. GAVE 2 APPLE JUICE.
[2023-09-19 09:56] LABS: BASOPHILS PERCENT AUTO 1 % (0-2); EOSINOPHILS ABSOLUTE AUTO 0.35 K/mm3 (0.00-0.68); EOSINOPHILS PERCENT AUTO 4 % (0-6); Hematocrit 38.3 % (33.0-51.0); Hemoglobin 12.9 g/dL (11.5-16.0); IMMATURE GRAN ABSOLUTE AUTO 0.16 K/mm3 (0.00-0.10); IMMATURE GRAN PERCENT AUTO 2 % (0-1); LYMPHOCYTES ABSOLUTE AUTO 1.82 K/mm3 (0.84-5.20); LYMPHOCYTES PERCENT AUTO 18 % (21-46); MONOCYTES PERCENT AUTO 11 % (4-13); Mean Corpuscular HGB Conc 33.7 g/dL (31.5-36.5); Mean Corpuscular Volume 95 fL (80-100); Mean Platelet Volume 10.1 fL (9.1-12.4); NEUTROPHILS ABSOLUTE AUTO 6.51 K/mm3 (1.96-9.15); NEUTROPHILS PERCENT AUTO 65 % (41-73); Platelet Count 250 K/mm3 (150-400); RDW Coefficient Variation 13.5 % (11.7-14.2); RDW Standard Deviation 47.4 fL (35.1-46.3); Red Blood Cell Count 4.03 M/mm3 (3.80-5.20); White Blood Cell Count 10.04 K/mm3 (4.00-11.30)
[2023-09-19 10:23] LABS: Albumin, Blood 2.6 g/dL (3.4-5.0); Albumin/Globulin Ratio 0.7 (0.8-1.8); Bilirubin, Total 0.6 mg/dL (0.1-1.0); Bun/Creatinine Ratio 23.8 (12.0-20.0); Calcium, Blood 8.6 mg/dL (8.5-10.1); Creatinine, Blood 0.67 mg/dL (0.40-1.00); Globulin, Blood 3.7 g/dL (2.2-4.0); Potassium, Blood 3.7 mmol/L (3.5-5.5); Total Protein, Blood 6.3 g/dL (6.4-8.2)
[2023-09-19] MEDS ORDERED: Bisacodyl 10 MG Supp PR PRN (10:45)
[2023-09-19] MEDS ORDERED: Polyethylene Glycol 3350 17 gm PO PRN (10:45)
[2023-09-19] MEDS ORDERED: Docusate Sodium 100 MG Cap PO SCH (11:00)
[2023-09-19] MEDS ORDERED: Sennosides 8.6 MG Tab PO SCH (11:00)
[2023-09-19 15:33] VITALS: BP 145/70
--- NOTE | 2023-09-19 16:54 | NUR ---
PT HAD LARGE B/M TODAY. HAD A LOW CBG 35 THIS AM. HONEY PO, D50 IV PUSH. PT RECOVERED WELL. CBG 177, THEN ATE BREAKFAST. PT NEVER LOST CONSCIOUSNESS. STATED DID FEEL FINE. NO NOTICABLE LOC CHANGE. DISCUSSED WITH DR. STERN. ORDERS TO CHECK CBG IN AM DAILY AND PRN. NO OTHER CONCERNS NOTED. DAUGHTER IN TO VISIT TODAY. BED IN LOW POSITION, CALL LITE IN REACH, BED ALARM ON FOR SAFETY.
--- NOTE | 2023-09-19 18:44 | NUR ---
PT APPEARS TO HAVE ASPIRATED ON DINNER. KEEPING PT SITTING FULLY UPRIGHT AT 90'. CONTINUES TO COUGH TRYING TO CLEAR. PT STATES FEELING OKAY. BUT COUGHING. CALLED JARRED SINGH. CONTINUE TO KEEP UPRIGHT. ORDERS FOR SPEWINIFRED TO EVAL FOR DIET TOMORROW.
[2023-09-19 20:01] VITALS: BP 150/51
[2023-09-20 04:40] VITALS: BP 150/79
--- NOTE | 2023-09-20 05:01 | NUR ---
DOCTOR NOTIFIED CALLED DR TO REPORT PT LOW GRADE FEVER AND COUGH. PER REPORT PT POSSIBLY ASPIRATED DURING DINNER. HISTORY ALSO SAYS PT HAS CHRONIC COUGH. ORDERS RECEIVED. SEE EMAR.
[2023-09-20] MEDS ORDERED: Guaifenesin/Dextromethorphan Syrup 5 ML UDC PO PRN (05:05)
--- NOTE | 2023-09-20 05:38 | NUR ---
SHIFT SUMMARY PT A&O TO SELF ONLY. COOPERATIVE WITH CARE. PT TIRED T/O SHIFT. ESILY AWAKENS WITH VERBAL STIMULI. AM CBG 107. PER REPORT DURING PREVIOUS SHIFT PT HAD POSSIBLY ASPIRATED. HX SHOWS CHRONIC COUGH. PT COUGHING THIS AM, REPORTED TO AND ORDERS PLACED FOR PRN COUGH MEDS. PT ASLEEP AT THIS TIME SO DID NOT GIVE. PT TO HAVE SPEECH EVAL TODAY DUE TO ASPIRATION RISK. PUREWICK IN PLACE DRAINING DARK URINE. BED IN LOWEST POSIITON WITH CALL LIGHT WITHIN REACH.
[2023-09-20 07:23] VITALS: BP 137/65
--- NOTE | 2023-09-20 14:40 | NUR ---
PATIENT TRANSFERRED TO ROOM 358, FTF REPORT GIVEN TO Fabiana MONTGOMERY LPN. ALL BELONGINGS SENT WITH PATIENT.
[2023-09-20 15:59] VITALS: BP 136/53
--- NOTE | 2023-09-20 18:49 | NUR ---
SHIFT SUMMARY PT TRANSFERRED FROM [facility] AND REPORT RECEIVED FROM MIKAELA MENDEZ. PATIENT ASLEEP AND WILL ASROUSE TO VERBAL CUES BUT PROMPTLY FALLS BACK ASLEEP. DENIES ANY CP/PRESSURE OR PAIN AT THIS TIME. SHE WAS NOT AWAKE ENOUGH TO EAT DINNER. PUREWICK CHANGED AND IN PLACE. LBM THIS AFTERNOON, MEDIUM AND SOFT. REPOSITIONED FLOATED SUPINE. CURRENTLY ASLEEP BUT WILL OPEN EYES WITH TOUCH. BED IN THE LOWEST POSITION. CALL LIGHT WITHIN REACH.
[2023-09-20 19:34] VITALS: BP 143/57
[2023-09-21 02:06] VITALS: BP 123/57
--- NOTE | 2023-09-21 04:05 | NUR ---
SHIFT SUMMARY EDMOND PEREIRA WAS SLEEPING, ROUSABLE TO TOUCH, AND ONLY ORIENTED TO SELF ON ASSESSMENT. PT COULD NOT MAINTAIN ALERTNESS WELL ENOUGH TO SAFELY ADMINISTER ORAL MEDS. DURING SHIFT REPORT PT BEGAN COUGHING, AND HAS HAD A DRY SOUNDING INTERMITTENT COUGH TONIGHT, BUT IS MAINTAING SATS 88-94% THROUGH THE COUGHING FITS ON RA. FREQUENT PT REPOSITIONING. PT RESTING IN BED AT A LOW POSITION WITH CALL LIGHT IN REACH AND BED ALARM IN PLACE.
[2023-09-21 08:04] VITALS: BP 123/49
[2023-09-21 17:34] VITALS: BP 138/50
[2023-09-21 19:36] VITALS: BP 131/52
[2023-09-22 03:47] VITALS: BP 143/59
--- NOTE | 2023-09-22 05:10 | NUR ---
PATIENT IS NON-VERBAL BUT AROUSABLE. ON ROOM AIR. WITH POWERGLIDE ON RIGHT ARM. WITH PUREWICK, DRAINING WELL. NO COMPLAINT MADE. REPOSITIONED. WILL BE DISCHARGED TODAY. NEEDS ATTENDED. CALL LIGHT WITHIN PATIENT'S REACH. WILL CONTINUE TO MONITOR.
[2023-09-22 08:01] VITALS: BP 134/65
[2023-09-22] MEDS ORDERED: ACET325 PO (08:49)
[2023-09-22] MEDS ORDERED: ASPI81CH PO (08:49)
[2023-09-22] MEDS ORDERED: CLOP75 PO (08:50)
[2023-09-22] MEDS ORDERED: METO50ER PO (08:50)
[2023-09-22] MEDS ORDERED: PANT20 PO (08:51)
[2023-09-22] MEDS ORDERED: MICONAZOLE NIT130 GM TOP (08:51)
--- NOTE | 2023-09-22 11:00 | NUR ---
DISCHARGE KIYA RUST REMOIVED. PRESSURE DRESSING APPLIED. NO SWELLING OR HEMATOMA NOTED. REMOVED DRESSING DURING BED BATH PRIOR TO DISCHARGE HOME. PT ALERT, AWARE OF NAME. TRIES TO HELP BUT VERY STIFF. DRESSED IN HER HOME CLOTHES PER FAMILY REQUEST. ATTENDS ON. PT HAD A L;ARGE, FORMED BOWEL MOVEMENT AFTER BREAKFAST. AWAITING ARRANGED TRANSPORT. CARE ONGOING.
--- NOTE | 2023-09-22 11:24 | NUR ---
DISCHARGE PT TRANSPORTED BY [facility]. PT ALERT AND COOPERATIVE WITH CARE. CARE ONGOING.
== END 2023-09-22 11:23 | disposition hospice, home (50) | DRG 871 ==
LOC: ER 16:47 → PCU 16:48 → ERHOLD 16:48 → PCU 23:08 → MEDS 09-14 15:26 → PCU 09-14 15:27 → MEDS 09-16 17:13 → ENPENDDIS 09-22 10:05 → MEDS 09-22 11:23
PROVIDERS: Emergency Medicine; Family Medicine; Family Medicine Adult Medicine; Internal Medicine; Student in an Organized Health Care Education/Training Program; ADMIT Student in an Organized Health Care Education/Training Program
DX: A41.59 Other Gram-negative sepsis (principal); I21.A1 Myocardial infarction type 2; E87.20 Acidosis, unspecified; N39.0 Urinary tract infection, site not specified; Z16.11 Resistance to penicillins; F03.90 Unspecified dementia, unspecified severity, without behavioral disturbance, psychotic disturbance, mood disturbance, and anxiety; Z66 Do not resuscitate; Z51.5 Encounter for palliative care; R65.20 Severe sepsis without septic shock; I10 Essential (primary) hypertension; R32 Unspecified urinary incontinence; E78.5 Hyperlipidemia, unspecified; R53.83 Other fatigue; H40.9 Unspecified glaucoma; Z88.8 Allergy status to other drugs, medicaments and biological substances; Z88.5 Allergy status to narcotic agent; Z79.899 Other long term (current) drug therapy; Z79.2 Long term (current) use of antibiotics; Z98.890 Other specified postprocedural states; Z11.52 Encounter for screening for COVID-19; R05.9 Cough, unspecified
CPT/HCPCS: 0241U; 36415; 71045; 80048; 80053; 81001; 82947; 83605; 83880; 84443; 84484; 85025; 85520; 85610; 85730; 87040; 87077; 87086; 87186; 92610; 93005; 93010; 94762; 96361; 96365; 96375; 96376; 97110; 97112; 97161; 97165; 97530; 99285-25; A9270; C1751; C8929; G0378; J0696; J1644; J1650; J7030; J7120; Q9957

== ENCOUNTER → 2024-03-23 | Outpatient (CLI) | payer OTHER ==
[~2024-03-23] MED LIST changes: +ACET325 PO; +ASCO500 PO; +ASPI81CH PO; +ATENOLOL25 MG PO; +CLOP75 PO; +METO50ER PO; +MICONAZOLE NIT130 GM TOP; +PANT20 PO; +VISBIOME 112.51 EACH PO; +[UNRECOGNIZED DRUG - OTHER] PO
== END | disposition home or self-care (01) ==
LOC: LAB 18:15 → LAB SHORT 18:15
DX: N39.0 Urinary tract infection, site not specified (principal); G31.1 Senile degeneration of brain, not elsewhere classified; R82.90 Unspecified abnormal findings in urine; Z87.440 Personal history of urinary (tract) infections
CPT/HCPCS: 87086

== ENCOUNTER → 2024-03-24 | Outpatient (CLI) | payer OTHER ==
[2024-03-24 17:53] LABS: Source, Urine Straight Cath
[2024-03-24 18:41] LABS: Appearance, Urine Cloudy (Clear); Bilirubin, Urine Neg (Neg); Blood, Urine Neg (Neg); Glucose Qualitative, Urine Neg (Neg); Ketones, Urine Neg (Neg); Leukocyte Esterase, Urine Neg (Neg); Nitrite, Urine Pos (Neg); Protein, Urine Neg (Neg); Specific Gravity, Urine 1.015 (1.003-1.022); Urobilinogen, Urine NORM (Normal)
[2024-03-24 18:54] LABS: Color, Urine Pale Yellow (P-Yellow)
[2024-03-24 18:55] LABS: Red Blood Cells, Urine 0-2 /hpf (0-2); White Blood Cells, Urine 0-2 /hpf (0-5)
[2024-03-24 18:56] LABS: Bacteria Many /hpf; Squamous Epithelial Cells Many /hpf (Few)
== END ==
LOC: EDSTATUS 08:24 → LAB HH 17:49 → LAB 17:49
PROVIDERS: Internal Medicine Hematology & Oncology
DX: R82.90 Unspecified abnormal findings in urine (principal); Z87.440 Personal history of urinary (tract) infections; N39.0 Urinary tract infection, site not specified; G31.1 Senile degeneration of brain, not elsewhere classified
CPT/HCPCS: 81001; 87077; 87086; 87186